=== PATIENT | male | born 1975 | race Caucasian/White ===

== ENCOUNTER 2017-05-18 09:45 | Emergency (ER) | payer BC ==
[2017-05-18 09:57] VITALS: TEMP 97.2
[2017-05-18] MEDS ORDERED: TAMSULOSIN 0.4 MG CAP PO ONE (09:58)
[2017-05-18] MEDS ORDERED: KETOROLAC TROMETHAMINE INJ 30 MG/ML VIAL IV ONE (09:58)
[2017-05-18] MEDS ORDERED: LACTATED RINGERS 1,000 ML IVS ONE (09:58)
--- NOTE | 2017-05-18 09:58 | ED.PDOC ---
History of Present Illness - General Chief Complaint: Problem Stated Complaint: left abdominal and flank pain Time Seen by Provider: 05/18/17 09:55 Source: patient - History of Present Illness Initial Comments: Mookie Walters 42 y/o male seen in er today with sharp left flank pain radiation to LLQ which started today stated had kidney stone in the past and was seen by Urologist.No nausea/vomiting chills.Denies chronic medical problems. Timing/Duration: just prior to arrival Quality: sharpness Onset Location: left flank Radiation: LLQ Activites at Onset: none Prior abdominal problems: similar symptoms Sexual intercourse history: other - always Improving Factors: nothing Worsening Factors: nothing Associated Symptoms: denies symptoms Allergies/Adverse Reactions: Allergies NO KNOWN ALLERGY Allergy (Unverified 11/11/14 21:33) Home Medications: Ambulatory Orders Lubiprostone [Amitiza] 8 mcg PO BID 08/14/15 Magnesium 500 mg PO DAILY 08/14/15 Polyethylene Glycol 3350 [Miralax] 17 gm PO DAILY 08/14/15 Acetaminophen W/ Codeine [Tylenol w/Codeine 300-30 mg] 1 tab PO Q6HRS PRN #14 tab 05/18/17 Tamsulosin HCl [Flomax] 0.4 mg PO DAILY #7 cap 05/18/17 Review of Systems - Review of Systems Constitutional: States: no symptoms reported EENTM: States: no symptoms reported Respiratory: States: no symptoms reported Cardiology: States: no symptoms reported Gastrointestinal/Abdominal: States: see HPI, other - flank pain Genitourinary: States: other - history of kidney stones Skin: States: no symptoms reported Neurological: States: no symptoms reported Past Medical History (General) - Patient Medical History Hx Congestive Heart Failure: No Hx Hypertension: Yes - parents Hx Diabetes: Yes - parents Surgical History: other - fundoplication - Social History Hx Tobacco Use: No Hx Chewing Tobacco Use: No Hx Physical Abuse: No Hx Emotional Abuse: No Hx Suspected Abuse: No Family Medical History - Family History Father Family History: Unknown Physical Exam - Physical Exam General Appearance: Alert, Comfortable, No apparent distress Eyes, Ears, Nose, Throat Exam: TMs normal, pharynx normal Neck: non-tender, full range of motion, supple Cardiovascular/Respiratory: regular rate, rhythm, no M/R/G, normal peripheral pulses Gastrointestinal/Abdominal: non tender, soft, no organomegaly Male Genital Exam: no hernia Back Exam: normal inspection, no vertebral tenderness, CVA tenderness (L) Extremity: non-tender, no pedal edema, no calf tenderness Neurologic: alert, oriented x 3 Skin Exam: normal color, warm/dry Progress - Progress Progress: 05/18/17 11:47 Last Vital Signs Temp 97.2 F L 05/18/17 09:54 Pulse 76 05/18/17 11:15 Resp 20 05/18/17 11:15 BP 136/81 05/18/17 11:15 Pulse Ox 100 05/18/17 11:15 - Results/Orders Results/Orders: Laboratory Last Values WBC 9.4 K/mm3 (4.8-10.8) 05/18/17 09:58 RBC 5.11 M/mm3 (4.70-6.10) 05/18/17 09:58 Hgb 15.0 gm/dL (14.0-18.0) 05/18/17 09:58 Hct 44.1 % (42.0-52.0) 05/18/17 09:58 MCV 86.2 fl (80.0-94.0) 05/18/17 09:58 MCH 29.4 pg (27.0-31.0) 05/18/17 09:58 MCHC 34.0 g/dL (33.0-37.0) 05/18/17 09:58 RDW 14.0 % (11.5-14.5) 05/18/17 09:58 Plt Count 312 K/mm3 (130-400) 05/18/17 09:58 MPV 7.4 fl (7.40-10.4) 05/18/17 09:58 Absolute Neuts (auto) 5.50 K/uL (1.8-6.8) 05/18/17 09:58 Absolute Lymphs (auto) 2.90 K/uL (1.0-3.4) 05/18/17 09:58 Absolute Monos (auto) 0.80 K/uL (0.2-0.8) 05/18/17 09:58 Absolute Eos (auto) 0.10 K/uL (0.0-0.4) 05/18/17 09:58 Absolute Basos (auto) 0.10 K/uL (0.0-0.1) 05/18/17 09:58 Neutrophils % 58.9 % (42.0-78.0) 05/18/17 09:58 Lymphocytes % 30.8 % (20.0-50.0) 05/18/17 09:58 Monocytes % 8.4 % (2.0-9.0) 05/18/17 09:58 Eosinophils % 1.1 % (1.0-5.0) 05/18/17 09:58 Basophils % 0.8 % (0.0-2.0) 05/18/17 09:58 Sodium 137 mmol/L (135-145) 05/18/17 09:58 Potassium 3.6 mmol/L (3.6-5.0) 05/18/17 09:58 Chloride 100 mmol/L (101-111) L 05/18/17 09:58 Carbon Dioxide 26 mmol/L (21-31) 05/18/17 09:58 Anion Gap 14.6 (12-18) 05/18/17 09:58 BUN 14 mg/dL (7-18) 05/18/17 09:58 Creatinine 0.84 mg/dL (0.6-1.3) 05/18/17 09:58 BUN/Creatinine Ratio 16.7 (10-20) 05/18/17 09:58 Random Glucose 101 mg/dL (70-105) 05/18/17 09:58 Serum Osmolality 274.4 mOsm/L (275-295) L 05/18/17 09:58 Calcium 9.8 mg/dL (8.4-10.2) 05/18/17 09:58 Urine Color Yellow (Yellow) 05/18/17 09:57 Urine Appearance Sl cloudy (Clear) 05/18/17 09:57 Urine pH 6.0 (4.5-7.8) 05/18/17 09:57 Ur Specific [place] 1.025 (1.005-1.030) 05/18/17 09:57 Urine Protein Negative mg/dL 05/18/17 09:57 Urine Glucose (UA) Negative mg/dL (Negative) 05/18/17 09:57 Urine Ketones Negative mg/dL (NEGATIVE) 05/18/17 09:57 Urine Blood Large (Negative) H 05/18/17 09:57 Urine Nitrite Negative 05/18/17 09:57 Urine Bilirubin Small (NEGATIVE) H 05/18/17 09:57 Urine Urobilinogen 0.2 mg/dL (0.2-1.0) 05/18/17 09:57 Ur Leukocyte Esterase Negative (Negative) 05/18/17 09:57 Urine RBC Tntc /hpf H 05/18/17 09:57 Urine WBC 1-3 /hpf 05/18/17 09:57 Ur Epithelial Cells 0 /hpf 05/18/17 09:57 Urine Bacteria Rare 05/18/17 09:57 - EKG/XRAY/CT CT Ordered: Yes - abd/p-3.5 mm stone UPV junction left Departure - Departure Clinical Impression: Ureterolithiasis, Flank pain, Bilateral nephrolithiasis Hematuria Qualifiers: Hematuria type: other microscopic Qualified Code(s): R31.29 - Other microscopic hematuria; R31.2 - Other microscopic hematuria Time of Disposition: 13:06 Disposition: Discharge to Home or Self Care Condition: Good Departure Forms: ED Discharge - Pt. Copy, Patient Portal Self Enrollment Instructions: DI for Kidney Stones Referrals: Jabari Martin III, MD [Primary Care Provider] - 1-2 Weeks Prescriptions: Acetaminophen W/ Codeine [Tylenol w/Codeine 300-30 mg] 1 tab PO Q6HRS PRN #14 tab PRN Reason: Pain Tamsulosin HCl [Flomax] 0.4 mg PO DAILY #7 cap Home Medications: Ambulatory Orders Lubiprostone [Amitiza] 8 mcg PO BID 08/14/15 Magnesium 500 mg PO DAILY 08/14/15 Polyethylene Glycol 3350 [Miralax] 17 gm PO DAILY 08/14/15 Acetaminophen W/ Codeine [Tylenol w/Codeine 300-30 mg] 1 tab PO Q6HRS PRN #14 tab 05/18/17 Tamsulosin HCl [Flomax] 0.4 mg PO DAILY #7 cap 05/18/17 Additional Instructions: Increase oral fluid intake;Return to emergency room as needed;Follow up with Dr. Acosta-Urologist call for appointment today
--- NOTE | 2017-05-18 11:15 | CT ---
EXAM DESCRIPTION: Abdomen/Pelvis w/o Contrast: Computed Tomography. CLINICAL HISTORY: flank pain left/history of kidney stone COMPARISON: None. TECHNIQUE: Spiral-axial scans at 5.0 mm intervals through the abdomen and pelvis. Coronal and sagittal 2.0mm reconstructions. No IV or oral contrast. Total Exam DLP: 572.59 mGy-cm. This exam was performed according to our departmental CT dose-optimization program which includes automated exposure control, adjustment of the mA and/or kV according to patient size and/or use of iterative reconstruction technique; to reduce radiation dose to as low as reasonably achievable (ALARA). FINDINGS: Kidneys and Ureters: Vague radiodense material/gravel in the superior and inferior right renal collecting system. 2 mm stone posterior mid collecting system. No hydronephrosis or perinephric stranding. Minimal hydronephrosis left kidney. Mild perinephric stranding. 2 radiodense stones less than 2 mm diameter in the superior collecting system. Minimal radiodense material/gravel in the mid collecting system. 3.2 mm radiodense stone inferior left collecting system. 3.5 mm radiodense stone in the distal left ureter, 1 cm from the UVJ. Distention of the ureter proximal to the stone from the renal pelvis. Minimal periureteral stranding proximal to the stone. Pelvic Organs: Urinary bladder almost empty with no radiodense stones. Calcifications in the pelvis and abutting the prostate gland and seminal vesicles. No fluid in the anterior peritoneal reflection. Lung and pleura bases: Negative. Liver, spleen, stomach, and adrenal glands: Unremarkable. Pancreas, Gallbladder, Ducts: Negative. Aorta: Normal caliber. Small Bowel: Minimal gas distention proximally with air-fluid levels. Mostly fluid and normal caliber distally but no abrupt transition point. Small mesenteric lymph nodes. Terminal Ileum/Cecum: Normal caliber of the structures. Retrocecal appendix normal caliber. Normal density of the surrounding fat. Small mesenteric lymph nodes. Colon: Normal caliber with no redundancy. Mesentery: Pararenal stranding and minimal stranding around the distal left ureter. No free air in the peritoneum. Spine and Bony Pelvis: Narrowing L5-S1 disc space posterior broad-based disc and endplate spurs narrowing the canal. Near stenosis left foramen. Spondylosis lower thoracic spine disc spaces. Abdominal Wall/Back Soft Tissues: No hernia. No soft tissue mass. IMPRESSION: 1. 3.5 mm radiodense stone partially obstructing the distal left ureter just proximal to the left UVJ. Periureteral edema proximal to the stone. Hydroureter from the stone proximally to the left renal pelvis with mild left hydronephrosis. Bilateral renal stones. No hydronephrosis or hydroureter on the right. No right perinephric edema. 2. Spondylosis L5-S1 and lower thoracic spine. 3. No radiodense stones in the urinary bladder. Minimal calcifications in and around the prostate gland. 4. Small bowel stasis with gas distention proximally. No obstruction or free air. Electronically signed by: Evelio Edgar MD 05/18/2017 11:14 AM [employer]
[2017-05-18] MEDS ORDERED: MORPHINE SULFATE INJ 10 MG/ML VIAL IV ONE (11:17)
[2017-05-18] MEDS ORDERED: SODIUM CHLORIDE 0.9% 500ML 500 ML IVS ONE (11:48)
[2017-05-18 12:51] VITALS: BP 113/67; O2SAT 99
== END 2017-05-18 12:32 | disposition home or self-care (01) ==
LOC: ER 09:45
DX: N20.2 Calculus of kidney with calculus of ureter (principal); Z87.442 Personal history of urinary calculi
CPT/HCPCS: 74176; 80048; 81001; 85025; J1885; J2270; J7040; J7120

== ENCOUNTER → 2017-08-01 | Outpatient (CLI) | payer BC | LOC: GMAL 10:43 | PROVIDERS: ATTEND Family Medicine | DX: Z00.00 Encounter for general adult medical examination without abnormal findings (principal); E78.2 Mixed hyperlipidemia ==

== ENCOUNTER → 2017-11-16 | Outpatient (CLI) | payer BC | LOC: GMAL 10:56 | PROVIDERS: ATTEND Family Medicine | DX: E55.9 Vitamin D deficiency, unspecified (principal) ==

== ENCOUNTER → 2018-01-18 | Outpatient (CLI) | payer BC | LOC: LAB.O 16:59 | PROVIDERS: ATTEND Family Medicine | DX: R19.5 Other fecal abnormalities (principal) ==

== ENCOUNTER → 2019-08-21 | Outpatient (CLI) | payer BC | LOC: GMAL 10:49 | PROVIDERS: ATTEND Family Medicine | DX: E29.1 Testicular hypofunction (principal) ==

== ENCOUNTER → 2020-02-26 | Outpatient (CLI) | payer BC | LOC: GMAL 11:02 | PROVIDERS: ATTEND Family Medicine | DX: E29.1 Testicular hypofunction (principal); E55.9 Vitamin D deficiency, unspecified; D51.3 Other dietary vitamin B12 deficiency anemia; R53.82 Chronic fatigue, unspecified ==